=== PATIENT | female | born 1960 | race Caucasian/White ===

== ENCOUNTER 2017-09-01 17:00 | Emergency (ER) | payer OTHER ==
[2017-09-01 17:07] VITALS: RESP 16; TEMP 98.6; O2SAT 97
--- NOTE | 2017-09-01 17:09 | EDPHY ---
H & P Stated Complaint: Low back pain/sciatica after standing up Time Seen by Provider: 09/01/17 17:09 HPI/ROS: CHIEF COMPLAINT: Acute low back pain HISTORY OF PRESENT ILLNESS: The patient has a history of lumbar DJD. She has a history of known disc herniations at L4/5 and S1. She has no prior history of back surgery. The patient presents the ED after she developed acute back pain with a positional change earlier today. The patient did developed some transient weakness in her legs. She does complain of pain in her left greater than right groin. The patient denies any bowel or bladder dysfunction. She denies any saddle anesthesia. The patient denies significant past medical history. She is on hormone replacement therapy. The patient denies any history of an acute fall or trauma. The patient reports her pain is currently moderate in nature and worsened with movement. She did take ibuprofen prior to arrival. REVIEW OF SYSTEMS: A comprehensive 10 point review of systems is otherwise negative aside from elements mentioned in the history of present illness. Source: Patient Exam Limitations: No limitations - Personal History Current Tetanus Diphtheria and Acellular Pertussis (TDAP): Unsure - Medical/Surgical History Hx Asthma: No Hx Chronic Respiratory Disease: No Hx Diabetes: No Hx Cardiac Disease: No Hx Renal Disease: No Hx Cirrhosis: No Hx Alcoholism: No Hx HIV/AIDS: No Hx Splenectomy or Spleen Trauma: No Other PMH: PSHx: L ovary removed, lysis of adhesions. herniation L4,5,S1 - Social History Smoking Status: Former smoker - Physical Exam Exam: General Appearance: Alert, mild discomfort Eyes: Pupils equal and round no pallor or injection ENT, Mouth: Mucous membranes moist Respiratory: There are no retractions, lungs are clear to auscultation Cardiovascular: Regular rate and rhythm Gastrointestinal: Abdomen is soft and nontender, no masses, bowel sounds normal Neurological: 5/5 strength bilateral lower extremities, normal reflexes, sensation intact to light touch, no clonus Skin: Warm and dry, no rashes Musculoskeletal: Tenderness to palpation throughout the lumbar paraspinal muscles bilaterally Extremities: symmetrical, full range of motion Constitutional: Initial Vital Signs Temperature (C) 37 C 09/01/17 17:05 Heart Rate 62 09/01/17 17:05 Respiratory Rate 16 09/01/17 17:05 Blood Pressure 106/78 09/01/17 17:05 O2 Sat (%) 97 09/01/17 17:05 O2 Delivery Mode Room Air Allergies/Adverse Reactions: orange juice [oranges] Allergy (Verified 09/01/17 17:04) h/a Home Medications: Medication Instructions Recorded Bioidentical Hormones 09/01/17 Cyclobenzaprine [Flexeril 10 MG 10 mg PO TID PRN #15 tab 09/01/17 (*)] Lidocaine 5% [Lidoderm 5% Patch 1 ea TD DAILY #12 patch 09/01/17 (*)] Medical Decision Making - Diagnostics Imaging Results: Imaging Impressions Lumbar Spine MRI 09/01/17 17:29 Impression: 1. Minimal progression of disk bulge at L2-L3 left posterior laterally compared to the prior study without significant consequences as detailed above. 2. Stable disk disease at L1-L2, L4-L5, and L5-S1. Findings discussed with Tay Gomez M.D. at 18:34 hour, 09/01/2017. ED Course/Re-evaluation: The patient presents to the ED with acute low back pain with radicular symptoms into her groin bilaterally. She reportedly weakness earlier today. The patient is declining narcotic pain medications or muscle relaxant. She was given a lidocaine patch. Given her complaints of acute weakness a MRI of the lumbar spine was ordered. The patient was taken for an MRI of the lumbar spine which demonstrated no evidence of a critical stenosis. She does have stable the disc bulging with a newly diagnosed mild eccentric L2/3 disc bulge. The patient has been informed that there is no evidence of a significant neurosurgical emergency and her MRI today. The patient will be provided a prescription for Lidoderm patches. The patient will continue to use ibuprofen for pain management. She is referred to our on-call spine surgeon for further evaluation. I re-evaluated the patient at 7:00 p.m.. She is comfortable with the plan to be discharged home. She has been given customary aftercare instructions and return precautions. Differential Diagnosis: Differential diagnosis considered includes lumbar disc herniation, cauda equina syndrome, myofascial strain - Data Points Medications Given: Discontinued Medications Lidocaine (Lidoderm 5%) 1 ea TD EDNOW ONE Stop: 09/01/17 17:30 Last Admin: 09/01/17 17:34 Dose: 1 ea Departure - Departure Disposition: [facility] Inpatient Acute Clinical Impression: Lumbar disc disease Condition: Good Instructions: Lumbar Disc Herniation (ED) Additional Instructions: 1. Take Ibuprofen or Motrin 600 mg by mouth three times a day. 2. Flexeril as needed for muscle relaxation. 3. Lidocaine patches as needed for pain. 4. Please follow up your regular senior regulatory affairs specialist or the spine surgeon you have been referred to for any ongoing symptoms. Referrals: Mary Gonzalez MD [Primary Care Provider] - As per Instructions Irene Jeffries MD [Medical Doctor] - As per Instructions
[2017-09-01] MEDS ORDERED: LIDOCAINE 5% 1 EA PATCH TD ONE (17:29)
[2017-09-01 18:58] VITALS: BP 114/73; PULSE 53
[2017-09-01] MEDS ORDERED: PATCH REMOVAL 1 EA PATCH TD SCH (21:00)
== END 2017-09-01 19:14 | disposition home or self-care (01) ==
DX: M51.36 Other intervertebral disc degeneration, lumbar region (principal)

== ENCOUNTER → 2017-11-11 | Outpatient (CLI) | payer OTHER | LOC: FIMAGING 15:33 | PROVIDERS: ATTEND Physical Medicine & Rehabilitation | DX: M41.86 Other forms of scoliosis, lumbar region (principal) ==